=== PATIENT | female | born 1940 | race African-American/Black ===

== ENCOUNTER → 2017-12-03 | Outpatient (CLI) | payer SELFPAY ==
[~2017-12-03] MED LIST: MICROZIDE12.5 M1 PO; MOBIC7.5 MG PO; PERCOCET 5/31 TABLET PO; vitamins
== END | disposition home or self-care (01) ==
LOC: RAD 07:48
DX: N28.1 Cyst of kidney, acquired (principal); N26.1 Atrophy of kidney (terminal); Z90.49 Acquired absence of other specified parts of digestive tract
CPT/HCPCS: 76700